=== PATIENT | male | born 1970 | race Two or more races ===

== ENCOUNTER 2016-05-22 17:51 | Emergency (ER) | payer SELFPAY ==
[~2016-05-22] VITALS: Ht 139.7 cm; Wt 54.4 kg
[2016-05-22] MEDS ORDERED: IV NORMAL SALINE 1000ML BAG 1,000 ML IV SCH (19:52)
[2016-05-22] MEDS ORDERED: MULTIVITAMIN with MINERAL TABLET. PO ONE (20:00)
[2016-05-22] MEDS ORDERED: FOLIC ACID 1 MG TABLET PO ONE (20:00)
[2016-05-22] MEDS ORDERED: THIAMINE 100 MG TABLET. PO ONE (20:00)
[2016-05-22 20:02] LABS: BASO % 1 % (0-3); EOS % 1 % (0-3); HEMATOCRIT 40.3 % (39.0-53.0); HEMOGLOBIN 13.4 g/dL (13.0-17.5); LYMPH # 2.3 x10^3/uL (1.0-4.8); LYMPH % 37 % (24-48); MEAN CORPUSCULAR HEMOGLOBIN 33 pg (25-35); MEAN CORPUSCULAR HGB CONC 33 g/dL (31-37); MEAN CORPUSCULAR VOLUME 99 fL (79-100); MONO % 14 % (0-9); NEUT % 48 % (31-73); PLATELET COUNT 104 x10^3/uL (140-400); RED BLOOD COUNT 4.05 x10^6/uL (4.30-5.70); WHITE BLOOD COUNT 6.4 x10^3/uL (4.0-11.0)
[2016-05-22 20:22] LABS: CALCIUM 8.7 mg/dL (8.5-10.1); CREATININE 0.7 mg/dL (0.7-1.3); GFR 120.9; POTASSIUM 3.7 mmol/L (3.5-5.1)
[2016-05-22 20:27] LABS: ALBUMIN 3.5 g/dL (3.4-5.0); DIRECT BILIRUBIN 0.1 mg/dL (0.0-0.2); MAGNESIUM 2.2 mg/dL (1.8-2.4); TOTAL BILIRUBIN 0.3 mg/dL (0.2-1.0); TOTAL PROTEIN 8.1 g/dL (6.4-8.2)
[2016-05-22 20:33] LABS: BILIRUBIN,URINE NEGATIVE (NEG); GLUCOSE,URINE NEGATIVE (NEG); NITRITE,URINE NEGATIVE (NEG); PH,URINE 6.5; PROTEIN,URINE NEGATIVE (NEG-TRACE); UROBILINOGEN,URINE 0.2 mg/dL (0.2 mg/dL)
[2016-05-22 20:40] LABS: BACTERIA,URINE 0 /HPF (0-FEW); BARBITURATES NEG (NEG); BENZODIAZEPINES NEG (NEG); CANNABINOIDS NEG (NEG); COCAINE NEG (NEG); METHADONE NEG (NEG); OPIATES NEG (NEG); PHENCYCLIDINE NEG (NEG); SQUAMOUS EPITHELIAL CELL,UR OCC /LPF; WBC,URINE 0 /HPF (0-4)
[2016-05-22 20:41] LABS: ETHANOL, URINE POS (NEG); RBC,URINE OCC /HPF (0-2)
[2016-05-22 21:30] VITALS: BP 119/64
--- NOTE | 2016-05-22 21:47 | PHYS DOC ---
Past Medical History Past Medical History: No Pertinent History Additional Past Medical Histor: DENIES Past Surgical History: No Surgical History Additional Past Surgical Histo: DENIES Alcohol Use: Heavy Drug Use: None Adult General Chief Complaint Chief Complaint: alcohol detox HPI HPI Patient is a 46 year old male who presents to the emergency department for evaluation of alcohol detox. Patient states that he is an alcoholic and drinks approximately 4 large beers daily which she has done for the last 10 years. The patient states that he wants to get help. Patient states he last drank alcohol 2 hours prior to arrival. Patient states that his drinking has caused him significant problems with his personal life and with his family. Patient denies any pain at this time. Patient is requesting help to stop drinking. Review of Systems Review of Systems Constitutional: Denies fever or chills [] Eyes: Denies change in visual acuity, redness, or eye pain [] HENT: Denies nasal congestion or sore throat [] Respiratory: Denies cough or shortness of breath [] Cardiovascular: No additional information not addressed in HPI [] GI: Denies abdominal pain, nausea, vomiting, bloody stools or diarrhea [] : Denies dysuria or hematuria [] Musculoskeletal: Denies back pain or joint pain [] Integument: Denies rash or skin lesions [] Neurologic: Denies headache, focal weakness or sensory changes [] Current Medications Current Medications Current Medications Medications (Trade) Dose Ordered Sig/Yahir Start Time Stop Time Status Last Admin Dose Admin Folic Acid (Folic Acid) 1 mg 1X ONCE 05/22/16 20:00 05/22/16 20:01 DC 05/22/16 20:12 1 MG Multivitamins (Thera M Plus) 1 tab 1X ONCE 05/22/16 20:00 05/22/16 20:01 DC 05/22/16 20:12 1 TAB Sodium Chloride (Iv Sodium Chloride 0.9% 1000ml Bag) 1,000 ml @ 1,000 mls/hr Q1H 05/22/16 19:52 05/22/16 20:51 DC 05/22/16 20:13 1,000 MLS/HR Thiamine HCl (Vitamin B-1) 100 mg 1X ONCE 05/22/16 20:00 05/22/16 20:01 DC 05/22/16 20:12 100 MG Allergies Allergies Allergies Coded Allergies Type Severity Reaction Last Updated Verified No Known Drug Allergies 05/22/16 No Physical Exam Physical Exam Constitutional: Alert, afebrile, no acute distress. [] HENT: Normocephalic, atraumatic, bilateral external ears normal, oropharynx moist, no oral exudates, nose normal. [] Eyes: PERRLA, EOMI, conjunctiva normal, no discharge. [] Neck: Normal range of motion, no tenderness, supple, no stridor. [] Cardiovascular:Heart rate regular rhythm, no murmur [] Lungs & Thorax: Bilateral breath sounds clear to auscultation [] Abdomen: Bowel sounds normal, soft, no tenderness, no masses, no pulsatile masses. [] Skin: Warm, dry, no erythema, no rash. [] Back: No tenderness, no CVA tenderness. [] Extremities: No tenderness, no cyanosis, no clubbing, ROM intact, no edema. [] Neurologic: Alert and oriented X 3, normal motor function, normal sensory function, no focal deficits noted. [] Current Patient Data Vital Signs Vital Signs Date Time Temp Pulse Resp B/P Pulse Ox O2 Delivery O2 Flow Rate FiO2 05/22/16 21:30 76 14 119/64 100 Room Air 05/22/16 19:00 98.4 98.4 Lab Values Laboratory Tests Test 05/22/16 19:10 05/22/16 20:25 White Blood Count 6.4x10^3/uL (4.0-11.0) Red Blood Count 4.05x10^6/uL (4.30-5.70) L Hemoglobin 13.4g/dL (13.0-17.5) Hematocrit 40.3% (39.0-53.0) Mean Corpuscular Volume 99fL (79-100) Mean Corpuscular Hemoglobin 33pg (25-35) Mean Corpuscular Hemoglobin Concent 33g/dL (31-37) Red Cell Distribution Width 14.0% (11.5-14.5) Platelet Count 104x10^3/uL (140-400) L Neutrophils (%) (Auto) 48% (31-73) Lymphocytes (%) (Auto) 37% (24-48) Monocytes (%) (Auto) 14% (0-9) H Eosinophils (%) (Auto) 1% (0-3) Basophils (%) (Auto) 1% (0-3) Neutrophils # (Auto) 3.1x10^3uL (1.8-7.7) Lymphocytes # (Auto) 2.3x10^3/uL (1.0-4.8) Monocytes # (Auto) 0.9x10^3/uL (0.0-1.1) Eosinophils # (Auto) 0.0x10^3/uL (0.0-0.7) Basophils # (Auto) 0.0x10^3/uL (0.0-0.2) Sodium Level 142mmol/L (136-145) Potassium Level 3.7mmol/L (3.5-5.1) Chloride Level 104mmol/L (98-107) Carbon Dioxide Level 27mmol/L (21-32) Anion Gap 11 (6-14) Blood Urea Nitrogen 8mg/dL (8-26) Creatinine 0.7mg/dL (0.7-1.3) Estimated GFR (Cockcroft-Gault) 120.9 Glucose Level 92mg/dL (70-99) Calcium Level 8.7mg/dL (8.5-10.1) Magnesium Level 2.2mg/dL (1.8-2.4) Total Bilirubin 0.3mg/dL (0.2-1.0) Direct Bilirubin 0.1mg/dL (0.0-0.2) Aspartate Amino Transferase (AST) 125U/L (15-37) H Alanine Aminotransferase (ALT) 110U/L (16-63) H Alkaline Phosphatase 87U/L (46-116) Total Protein 8.1g/dL (6.4-8.2) Albumin 3.5g/dL (3.4-5.0) Ethyl Alcohol Level 282mg/dL (0-10) H Urine Collection Type Unknown Urine Color Yellow Urine Clarity Clear Urine pH 6.5 Urine Specific [place] <=1.005 Urine Protein Negativemg/dL (NEG-TRACE) Urine Glucose (UA) Negativemg/dL (NEG) Urine Ketones (Stick) Negativemg/dL (NEG) Urine Blood Negative (NEG) Urine Nitrite Negative (NEG) Urine Bilirubin Negative (NEG) Urine Urobilinogen Dipstick 0.2mg/dL (0.2 mg/dL) Urine Leukocyte Esterase Negative (NEG) Urine RBC Occ/HPF (0-2) Urine WBC 0/HPF (0-4) Urine Squamous Epithelial Cells Occ/LPF Urine Bacteria 0/HPF (0-FEW) Urine Opiates Screen Neg (NEG) Urine Methadone Screen Neg (NEG) Urine Barbiturates Neg (NEG) Urine Phencyclidine Screen Neg (NEG) Urine Amphetamine/Methamphetamine Neg (NEG) Urine Benzodiazepines Screen Neg (NEG) Urine Cocaine Screen Neg (NEG) Urine Cannabinoids Screen Neg (NEG) Urine Ethyl Alcohol Pos (NEG) Laboratory Tests 05/22/16 19:10 Laboratory Tests 05/22/16 19:10 EKG EKG Not performed [] Radiology/Procedures Radiology/Procedures Not performed [] Course & Med Decision Making Course & Med Decision Making Pertinent Labs and Imaging studies reviewed. (See chart for details) The patient has a blood alcohol level of 282. Patient's lab work otherwise unremarkable. I consult the PAT team and spoke with Nikolas who agreed to evaluate the patient in hospital for candidacy for inpatient alcohol detox. The care of patient was signed out to Dr. Shipman at 2150. I seems care of this patient as stated, patient in the process of being evaluated by Nikolas of the PAT team, who arranged for the patient to be accepted to inpatient detox. Patient remained calm and cooperative during his ED course. Transportation was arranged for the patient, who is in agreement with this plan as stated, patient was transferred from the emergency department without issue. Dragon Disclaimer Dragon Disclaimer This electronic medical record was generated, in whole or in part, using a voice recognition dictation system. Departure Impression: Primary Impression: Chronic alcoholism Disposition: 05 TRANSFER OTHER Condition: STABLE Referrals: REX SUAREZ (PCP) Departure Departure Impression: Primary Impression: Chronic alcoholism Disposition: 05 TRANSFER OTHER Condition: STABLE Referrals: REX SUAREZ (PCP) MODESTO ARMIJO MD May 22, 2016 21:47 CHIQUIS SHIPMAN DO May 22, 2016 23:55
== END 2016-05-22 23:16 | disposition short-term general hospital (02) ==
LOC: ER 17:51
DX: F10.20 Alcohol dependence, uncomplicated (principal)
CPT/HCPCS: 36415; 80048; 80076; 81001; 83735; 85027; 96360; 99285; G0480; G0481; J7030; 99284-25